=== PATIENT | female | born 1930 | race Asian ===

== ENCOUNTER 2019-04-04 15:10 | Observation (INO) | payer MEDICARE, OTHER, MEDICAID ==
[2019-04-04 15:36] LABS: ADD MAN DIFF? NO
[2019-04-04 15:40] LABS: WHITE BLOOD COUNT 4.3 10^3/ul (4.8-10.8)
[2019-04-04 15:40] LABS: BASOPHILS % 0.5 % (0.0-2.0); EOSINOPHILS # 0.1 10^3/ul (0.0-0.5); EOSINOPHILS % 1.6 % (0.0-7.0); HEMATOCRIT 35.1 % (37.0-47.0); HEMOGLOBIN 11.8 g/dl (12.0-16.0); LYMPHOCYTES # 2.2 10^3/ul (0.8-2.9); LYMPHOCYTES % 52.2 % (15.0-51.0); MEAN CORPUSCULAR HEMOGLOBIN 29.9 pg (29.0-33.0); MEAN CORPUSCULAR HGB CONC 33.6 g/dl (32.0-37.0); MEAN CORPUSCULAR VOLUME 89.1 fl (82.0-101.0); MEAN PLATELET VOLUME 10.5 fl (7.4-10.4); MONOCYTE # 0.3 10^3/ul (0.3-0.9); MONOCYTES % 7.8 % (0.0-11.0); NEUTROPHIL # 1.6 10^3/ul (1.6-7.5); NEUTROPHILS % 37.7 % (39.0-77.0); PLATELET COUNT 146 10^3/UL (140-415); RED BLOOD COUNT 3.94 10^6/ul (4.20-5.40)
[2019-04-04 15:59] LABS: ANION GAP 10 (5-13); BLOOD UREA NITROGEN 20 mg/dl (7-20); CALCIUM 8.9 mg/dl (8.4-10.2); CARBON DIOXIDE 24 mmol/L (21-31); CHLORIDE 104 mmol/L (97-110); CREATININE 0.87 mg/dl (0.44-1.00); GLUCOSE 105 mg/dl (70-220); POTASSIUM 3.9 mmol/L (3.5-5.1); SODIUM 138 mmol/L (135-144)
[2019-04-04] MEDS: SOD CHLORIDE 0.9% 1,000 ML IV (15:59)
[2019-04-04] MEDS: LABETALOL HCL 20MG INJ IV (16:00)
[2019-04-04 16:09] LABS: TROPONIN-I < 0.012 ng/ml (0.000-0.120)
[2019-04-04] MEDS ORDERED: ACETAMINOPHEN 325 MG TAB PO (17:30)
[2019-04-04] MEDS ORDERED: ONDANSETRON 4 MG INJ IV (17:30)
[2019-04-04] MEDS ORDERED: NACL 0.9% 3 ML SYG IV (20:00)
[2019-04-04] MEDS: METOPROLOL (XL) 25 MG TAB PO ×2 (20:43→20:53)
[2019-04-04] MEDS: ISOSORBIDE DINITRATE 10 MG TAB PO (20:44)
[2019-04-04] MEDS: ATORVASTATIN 10 MG TAB PO (20:44)
[2019-04-04 21:01] LABS: TROPONIN-I < 0.012 ng/ml (0.000-0.120)
[2019-04-05 05:41] LABS: ADD MAN DIFF? NO
[2019-04-05 05:48] LABS: WHITE BLOOD COUNT 3.8 10^3/ul (4.8-10.8)
[2019-04-05 05:48] LABS: BASOPHILS % 0.5 % (0.0-2.0); EOSINOPHILS # 0.1 10^3/ul (0.0-0.5); EOSINOPHILS % 1.6 % (0.0-7.0); HEMATOCRIT 32.7 % (37.0-47.0); HEMOGLOBIN 11.3 g/dl (12.0-16.0); LYMPHOCYTES # 1.6 10^3/ul (0.8-2.9); LYMPHOCYTES % 41.9 % (15.0-51.0); MEAN CORPUSCULAR HGB CONC 34.6 g/dl (32.0-37.0); MEAN CORPUSCULAR VOLUME 86.7 fl (82.0-101.0); MONOCYTE # 0.3 10^3/ul (0.3-0.9); MONOCYTES % 8.9 % (0.0-11.0); NEUTROPHIL # 1.8 10^3/ul (1.6-7.5); NEUTROPHILS % 46.8 % (39.0-77.0); PLATELET COUNT 148 10^3/UL (140-415); RED BLOOD COUNT 3.77 10^6/ul (4.20-5.40)
[2019-04-05 06:10] LABS: ALANINE AMINOTRANSFERASE 23 IU/L (13-69); ALBUMIN 3.9 g/dl (3.3-4.9); ALBUMIN/GLOBULIN RATIO 1.25; ALKALINE PHOSPHATASE 45 IU/L (42-121); ANION GAP 10 (5-13); ASPARTATE AMINO TRANSFERASE 29 IU/L (15-46); BILIRUBIN,INDIRECT 0.7 mg/dl (0-1.1); BILIRUBIN,TOTAL 0.7 mg/dl (0.2-1.3); BLOOD UREA NITROGEN 17 mg/dl (7-20); CALCIUM 8.9 mg/dl (8.4-10.2); CARBON DIOXIDE 24 mmol/L (21-31); CHLORIDE 105 mmol/L (97-110); CREATININE 0.76 mg/dl (0.44-1.00); GLUCOSE 99 mg/dl (70-220); POTASSIUM 3.5 mmol/L (3.5-5.1); SODIUM 139 mmol/L (135-144)
[2019-04-05 06:15] LABS: CREATINE KINASE 80 IU/L (23-200)
[2019-04-05 06:16] LABS: MAGNESIUM 1.9 mg/dl (1.7-2.5)
[2019-04-05 06:17] LABS: CK INDEX 0.9; CK-MB 0.69 ng/ml (0.0-2.4); TROPONIN-I < 0.012 ng/ml (0.000-0.120)
[2019-04-05 06:39] LABS: HEMOGLOBIN A1C 5.3 % (0-5.9)
[2019-04-05] MEDS: FISH OIL 1,000 MG CAP PO ×2 (08:19→20:47)
[2019-04-05] MEDS: ASPIRIN (EC) 81 MG TAB PO (08:19)
[2019-04-05] MEDS: LOSARTAN 50 MG TAB PO (08:19)
[2019-04-05] MEDS: MULTIVITAMINS THERAPEUTIC TAB PO (08:19)
[2019-04-05] MEDS: ISOSORBIDE DINITRATE 10 MG TAB PO (08:19)
[2019-04-05] MEDS: ENOXAPARIN 30 MG/0.3 ML SYG SC (08:30)
[2019-04-05] MEDS ORDERED: METOPROLOL (XL) 25 MG TAB PO (09:00)
[2019-04-05] MEDS: PANTOPRAZOLE (EC) 40 MG TAB PO (09:14)
[2019-04-05] MEDS: AMLODIPINE 5 MG TAB PO (18:36)
[2019-04-05] MEDS: METOPROLOL (XL) 25 MG TAB PO (20:48)
[2019-04-05] MEDS: ATORVASTATIN 10 MG TAB PO (20:48)
[2019-04-05] MEDS: ISOSORBIDE DINITRATE 20 MG TAB PO (20:48)
[2019-04-05 22:38] LABS: FREE T4 (FREE THYROXINE) 1.47 ng/dl (0.85-1.93)
[2019-04-06] MEDS: PANTOPRAZOLE (EC) 40 MG TAB PO (06:00)
[2019-04-06] MEDS: MULTIVITAMINS THERAPEUTIC TAB PO (08:21)
[2019-04-06] MEDS: AMLODIPINE 5 MG TAB PO (08:21)
[2019-04-06] MEDS: ASPIRIN (EC) 81 MG TAB PO (08:21)
[2019-04-06] MEDS: LOSARTAN 50 MG TAB PO (08:21)
[2019-04-06] MEDS: FISH OIL 1,000 MG CAP PO (08:21)
[2019-04-06] MEDS: ISOSORBIDE DINITRATE 20 MG TAB PO (08:22)
[2019-04-06] MEDS: ENOXAPARIN 30 MG/0.3 ML SYG SC (08:51)
[2019-04-06] MEDS: FUROSEMIDE 20 MG INJ IV (11:50)
== END 2019-04-06 17:50 | disposition home health service (06) ==
LOC: E/R 15:10 → TEL 17:08
DX: I10 Essential (primary) hypertension (principal); R42 Dizziness and giddiness; R55 Syncope and collapse; E78.5 Hyperlipidemia, unspecified; E78.00 Pure hypercholesterolemia, unspecified; Z79.82 Long term (current) use of aspirin
CPT/HCPCS: 36415; 70450; 80048; 80053; 82306; 82550; 82553; 83036; 83735; 84439; 84443; 84484; 85025; 93005; 93306; 93880; 96361; 96374; 97161; 99285-25; G0378